=== PATIENT | female | born 1950 | race Caucasian/White ===

== ENCOUNTER 2020-04-05 10:02 | Outpatient (REF) | payer MEDICARE, SELFPAY ==
[2020-04-05 12:06] LABS: Thyroid Stimulating Hormone 2.02 mIU/mL (0.32-4.0)
== END 2020-04-05 10:03 | disposition home or self-care (01) ==
LOC: HO.HMGCLDS 10:02
PROVIDERS: PCP Student in an Organized Health Care Education/Training Program; Visit Provider Internal Medicine
DX: E03.9 Hypothyroidism, unspecified (principal)
CPT/HCPCS: 84443

== ENCOUNTER 2020-06-26 07:01 | Outpatient (REF) | payer MEDICARE, SELFPAY | END 2020-06-26 07:02 | disposition home or self-care (01) | LOC: HO.LAB 07:01 | PROVIDERS: Visit Provider Internal Medicine | DX: Z20.828 Contact with and (suspected) exposure to other viral communicable diseases (principal) | CPT/HCPCS: C9803; U0003 ==

== ENCOUNTER 2020-07-12 12:31 | Outpatient (REF) | payer MEDICARE, SELFPAY ==
[2020-07-12 14:19] LABS: Estimated Average Glucose 114 mg/dL; Hemoglobin A1c % 5.6 %
[2020-07-12 14:48] LABS: Alanine Aminotransferase 7 U/L (0-31); Albumin Level 4.3 g/dL (3.5-5.0); Alkaline Phosphatase 150 U/L (39-117); Anion Gap 17 (12-20); Aspartate Amino Transferase 10 U/L (5-31); Bilirubin Direct 0.3 mg/dL (0.0-0.5); Bilirubin Total 0.7 mg/dL (0.0-1.0); Blood Urea Nitrogen 22 mg/dL (9-16); Calcium 9.2 mg/dL (8.4-10.2); Carbon Dioxide 29 mmol/L (22-29); Chloride 100 mmol/L (96-108); Cholesterol 164 mg/dL; Estimated Glomerular Filt Rate 54; Glucose Fasting 157 mg/dL (60-99); HDL Cholesterol 43 mg/dL; LDL Cholesterol Calculated 98 mg/dl; Potassium 4.2 mmol/l (3.3-5.1); Sodium 142 mmol/L (135-145); Total Protein 7.9 g/dL (6.5-8.0); Triglycerides 118 mg/dL
[2020-07-12 14:55] LABS: Thyroid Stimulating Hormone 2.13 uIU/mL (0.32-4.0)
== END 2020-07-12 12:32 | disposition home or self-care (01) ==
LOC: HO.HMGCLDS 12:31
PROVIDERS: PCP Student in an Organized Health Care Education/Training Program; Visit Provider Student in an Organized Health Care Education/Training Program
DX: I10 Essential (primary) hypertension (principal); E03.9 Hypothyroidism, unspecified
CPT/HCPCS: 36415; 80048; 80061; 80076; 83036; 84443

== ENCOUNTER → 2020-10-23 06:26 | Day surgery (SDC) | payer MEDICARE, SELFPAY ==
[2020-10-18 12:44] VITALS: BMI 40.4
[2020-10-23 06:50] VITALS: BP 123/57; PULSE 92; RESP 18; TEMP 36.3; O2SAT 94
[2020-10-23 07:12] LABS: Glucose, Whole Blood 179 mg/dL (60-115)
--- NOTE | 2020-10-23 07:16 | P.CONAN_ITS ---
HPI - Anesthesia Eval Consult details Narrative: 70 yo female patient here for EGD, colonoscopy. Colonoscopy postponed from 02/2020 secondary to new diagnosis of atrial fibrillation on day of procedure. FORMERLY [facility], [facility] Past Medical History Medical History Arthritis Elevated cholesterol GERD (gastroesophageal reflux disease) History of diverticulosis History of gastric cancer History of neuropathy History of pneumonia HTN (hypertension) Hypothyroid Migraine headache Murmur New onset a-fib Non-insulin dependent diabetes mellitus Pernicious anemia Smoker Vitamin B 12 deficiency Surgical History Surgical History History of bunionectomy of both great toes History of esophagogastroduodenoscopy (EGD) History of nasal surgery Hx of colonoscopy Social History Social History Are you a primary care companion to a significant other at home: No Do you presently have visiting nurse or other home services: No Smoking Status: Current every day smoker Cigarettes Per Day: 0.75 Years Smoked: 40 Use of substances other than those prescribed or required for medical reasons: No Have you been hit, kicked, punched, or otherwise hurt by someone within the past year? If so, by whom?: No Advance Directives: Yes Advance Directives Information Provided: Yes Advance Directives on File: No Recently lost weight without trying: No Meds Allergies Allergy/AdvReac Type Severity Reaction Status Date / Time No Known Allergies Allergy Verified 10/23/20 06:49 Active Medications: Current Medications Generic Name Dose Route Start Last Admin Trade Name Freq PRN Reason Stop Dose Admin Sodium Biphosphate/Sodium Phosphate 133 ml 10/23/20 06:30 Sodium Phosphate,[place]-Dibasic 133 Ml Enema NC ONCE PRN Poor Colonoscopy Prep Results Home Medications Medication Instructions Recorded Confirmed Last Taken Type albuterol sulfate 2 puff INHALATION QID 10/18/20 10/18/20 Unknown History apixaban [Eliquis] 1 tab PO BID 10/18/20 10/18/20 10/19/20 History atorvastatin 1 tab PO BEDTIME 10/18/20 10/18/20 Unknown History cholecalciferol (vitamin D3) 1 cap PO DAILY 10/18/20 10/18/20 Unknown History diltiazem HCl 1 cap PO DAILY 10/18/20 10/18/20 10/23/20 05:45 History glipizide mg PO 10/18/20 Unknown History levothyroxine 1 tab PO DAILY 10/18/20 10/18/20 Unknown History lisinopril-hydrochlorothiazide 1 tab PO DAILY 10/18/20 10/18/20 10/23/20 05:45 History loratadine 1 tab PO DAILY 10/18/20 10/18/20 Unknown History metformin 1 tab PO BID 10/18/20 10/18/20 Unknown History omeprazole 1 cap PO DAILY 10/18/20 10/18/20 Unknown History Exam Exam Date and Time: October 23, 2020 0716 Height,Weight and Vital Signs: Height 5 ft 2 in Weight 100.244 kg Last Vital Signs Temp 97.4 F 10/23/20 06:50 Pulse 92 10/23/20 06:50 Resp 18 10/23/20 06:50 BP 123/57 L 10/23/20 06:50 Pulse Ox 94 10/23/20 06:50 Pertinent Lab Results Pertinent Lab Results: Laboratory Tests 10/23/20 07:04 POC Glucose 179 H Narrative Narrative: Procedure cancelled in 02/2020 secondary to new onset afib. Has been followed by [facility] cardiology. Cardioversion had been discussed but patient elected to try rate control as she has been asymptomatic -though now admits to a little flutter here and there . No dizziness,faintness, h/o CHF. At last cardiology visit in 07/2020 patient noted to be tachycardic. Had Holter monitor following which her diltiazem was increase from 180 to 360mg per day. Today, her HR is between 130s to up to 160s with BP 90-100/38-41. Patient asymptomatic. Discussed with washer off at [facility] and Dr Mclaughlin here. Agree that procedure should be postponed. Dr Mclaughlin suggested admitting patient for further management which I discussed with patient including cardioversion sooner rather than later but patient elects to go home and arrange this with her washer off at [facility]. Bp now 120/50. HR 110s to 130s. Patient stable. OK to discharge per patient's wishes. Airway Mallampati Class: II TM Dist: >3cm Neck ROM: Full Denture: Upper and Lower Loose/Missing/Broken Teeth: Yes (Just 1 tooth bottom) Heart: Irregular + murmur Lungs: CTAB Assessment and Plan Anesthetic Plan Anesthetic Plan: Other
--- NOTE | 2020-10-23 09:06 | PC.NURSE ---
pt evaluated by anesthesia due to abnormal rhythm. hx afib. eliquis held since thrusday. rate uncontrolled and anesthesia spoke with getter welder. procedure cancelled due to uncontrolled rate.
== END ==
PROVIDERS: PCP Student in an Organized Health Care Education/Training Program; Visit Provider Internal Medicine
DX: Z12.11 Encounter for screening for malignant neoplasm of colon (principal); Z53.09 Procedure and treatment not carried out because of other contraindication; I48.91 Unspecified atrial fibrillation; Z79.01 Long term (current) use of anticoagulants; E11.9 Type 2 diabetes mellitus without complications; Z79.84 Long term (current) use of oral hypoglycemic drugs
CPT/HCPCS: 82947

== ENCOUNTER 2020-10-31 11:12 | Outpatient (REF) | payer MEDICARE, SELFPAY ==
[2020-10-31 14:43] LABS: Estimated Average Glucose 108 mg/dL; Hemoglobin A1c % 5.4 %
[2020-10-31 14:46] LABS: Thyroid Stimulating Hormone 1.96 uIU/mL (0.32-4.0); Vitamin D 25-OH Total 56.9 ng/mL (>30)
[2020-10-31 16:07] LABS: Alanine Aminotransferase < 6 U/L (0-31); Albumin Level 4.1 g/dL (3.5-5.0); Alkaline Phosphatase 132 U/L (39-117); Anion Gap 19 (12-20); Aspartate Amino Transferase 10 U/L (5-31); Bilirubin Direct 0.2 mg/dL (0.0-0.5); Bilirubin Total 0.6 mg/dL (0.0-1.0); Blood Urea Nitrogen 25 mg/dL (9-16); Carbon Dioxide 28 mmol/L (22-29); Chloride 101 mmol/L (96-108); Cholesterol 152 mg/dL; Estimated Glomerular Filt Rate 43; Glucose Random 50 mg/dL (60-115); HDL Cholesterol 39 mg/dL; LDL Cholesterol Calculated 83 mg/dl; Potassium 3.8 mmol/L (3.3-5.1); Sodium 144 mmol/L (135-145); Total Protein 7.5 g/dL (6.5-8.0); Triglycerides 152 mg/dL
== END 2020-10-31 11:13 | disposition home or self-care (01) ==
LOC: HO.HMGCLDS 11:12
PROVIDERS: PCP Student in an Organized Health Care Education/Training Program; Visit Provider Student in an Organized Health Care Education/Training Program
DX: E03.9 Hypothyroidism, unspecified (principal); E11.9 Type 2 diabetes mellitus without complications; I10 Essential (primary) hypertension; I48.91 Unspecified atrial fibrillation
CPT/HCPCS: 36415; 80048; 80061; 80076; 82306; 83036; 84443

== ENCOUNTER 2021-01-10 06:26 | Day surgery (SDC) | payer MEDICARE, SELFPAY ==
[2021-01-05 11:41] VITALS: BMI 38.0
--- NOTE | 2021-01-09 12:32 | P.CONAN_ITS ---
Documented by User: Lani Loulou 01/09/21 12:38 HPI - Anesthesia Eval Consult details Narrative: 70yo F for Upper Endoscopy and Colonoscopy Eliquis for afib Previously cx'd 09/2020 d/t new afib with HR to 160's. Outpt cardioversion by [facility] Cardiology. Last seen by cardiol 12/19/20: Afib in 80's. OK for colonoscopy with dil and metoprolol to be taken [facility] Past Medical History Medical History Arthritis COVID-19 vaccine administered Elevated cholesterol GERD (gastroesophageal reflux disease) History of cardioversion History of diverticulosis History of gastric cancer History of neuropathy History of pneumonia HTN (hypertension) Hypothyroid Migraine headache Murmur New onset a-fib Non-insulin dependent diabetes mellitus Pernicious anemia Smoker Vitamin B 12 deficiency Surgical History Surgical History History of bunionectomy of both great toes History of esophagogastroduodenoscopy (EGD) History of nasal surgery Hx of colonoscopy Social History Social History Are you a primary care process manager to a significant other at home: No Do you presently have visiting nurse or other home services: No Patient Tobacco Use Status: Current everyday Tobacco user Tobacco use type: Cigarette Cigarettes Per Day: 15 Years Smoked: 40 Use of substances other than those prescribed or required for medical reasons: No Are you DNR?: No Advance Directives Information Provided: No Recently lost weight without trying: No Eating poorly because of decreased appetite: No Nutrition Risks: No Nutritional Risk Meds Allergies Allergy/AdvReac Type Severity Reaction Status Date / Time No Known Allergies Allergy Verified 01/03/21 14:36 Home Medications Medication Instructions Recorded Confirmed Last Taken Type albuterol sulfate 2 puff INHALATION QID 10/18/20 01/05/21 Unknown History apixaban [Eliquis] 1 tab PO BID 10/18/20 01/05/21 01/07/21 21:00 History atorvastatin 1 tab PO BEDTIME 10/18/20 01/05/21 Unknown History cholecalciferol (vitamin D3) 1 cap PO DAILY 10/18/20 01/05/21 Unknown History diltiazem HCl 1 cap PO DAILY 10/18/20 01/05/21 01/10/21 05:30 History glipizide 5 mg PO BID 10/18/20 01/05/21 Unknown History levothyroxine 1 tab PO DAILY 10/18/20 01/05/21 01/10/21 05:30 History lisinopril-hydrochlorothiazide 1 tab PO DAILY 10/18/20 01/05/21 10/23/20 05:45 History loratadine 1 tab PO DAILY 10/18/20 01/05/21 Unknown History metformin 1 tab PO BID 10/18/20 01/05/21 Unknown History omeprazole 1 cap PO DAILY 10/18/20 01/05/21 Unknown History metoprolol tartrate 1 tab PO BID 01/05/21 01/05/21 01/10/21 05:30 History Exam Exam Date and Time: January 09, 2021 1232 Height,Weight and Vital Signs: Height 5 ft 2 in Weight 94.3 kg Narrative Narrative: EKG 11/2020 Afib with PV or aberrantly conducted complexes RBBB 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) Assessment and Plan Assessment Anesthesia Assessment: Chart Reviewed Documented by User: Hugo Almanza 01/10/21 07:21 [facility] Past Medical History Medical History Arthritis COVID-19 vaccine administered Elevated cholesterol GERD (gastroesophageal reflux disease) History of cardioversion History of diverticulosis History of gastric cancer History of neuropathy History of pneumonia HTN (hypertension) Hypothyroid Migraine headache Murmur New onset a-fib Non-insulin dependent diabetes mellitus Pernicious anemia Smoker Vitamin B 12 deficiency Surgical History Surgical History History of bunionectomy of both great toes History of esophagogastroduodenoscopy (EGD) History of nasal surgery Hx of colonoscopy Social History Social History Are you a primary care process manager to a significant other at home: No Do you presently have visiting nurse or other home services: No Patient Tobacco Use Status: Current everyday Tobacco user Tobacco use type: Cigarette Cigarettes Per Day: 15 Years Smoked: 40 Use of substances other than those prescribed or required for medical reasons: No Are you DNR?: No Advance Directives Information Provided: No Recently lost weight without trying: No Eating poorly because of decreased appetite: No Nutrition Risks: No Nutritional Risk Meds Allergies Allergy/AdvReac Type Severity Reaction Status Date / Time No Known Allergies Allergy Verified 01/03/21 14:36 Home Medications Medication Instructions Recorded Confirmed Last Taken Type albuterol sulfate 2 puff INHALATION QID 10/18/20 01/05/21 Unknown History apixaban [Eliquis] 1 tab PO BID 10/18/20 01/05/21 01/07/21 21:00 History atorvastatin 1 tab PO BEDTIME 10/18/20 01/05/21 Unknown History cholecalciferol (vitamin D3) 1 cap PO DAILY 10/18/20 01/05/21 Unknown History diltiazem HCl 1 cap PO DAILY 10/18/20 01/05/21 01/10/21 05:30 History glipizide 5 mg PO BID 10/18/20 01/05/21 Unknown History levothyroxine 1 tab PO DAILY 10/18/20 01/05/21 01/10/21 05:30 History lisinopril-hydrochlorothiazide 1 tab PO DAILY 10/18/20 01/05/21 10/23/20 05:45 History loratadine 1 tab PO DAILY 10/18/20 01/05/21 Unknown History metformin 1 tab PO BID 10/18/20 01/05/21 Unknown History omeprazole 1 cap PO DAILY 10/18/20 01/05/21 Unknown History metoprolol tartrate 1 tab PO BID 01/05/21 01/05/21 01/10/21 05:30 History Exam Airway Mallampati Class: II TM Dist: >3cm Neck ROM: Full Denture: Upper Loose/Missing/Broken Teeth: Yes (only one tooth bottom) Heart: irreg irreg s1s2 Lungs: cta b/l Assessment and Plan Assessment Anesthesia Assessment: Anesthesia Plan Discussed, PAT Visit and Chart Reviewed Final Anesthetic Review NPO: Yes ASA Class: III Final Preanesthetic Review: No Changes in Pt Med Stat, Meds/Allgs Chart Reviewed, Consent Obtained/Reviewed and Anes Risks/Benef Reviewed Patient Risk: Intermediate Procedure Risk: Low Assessment/Block/Sedation in SS: Assess/Block/Sedation-SS Anesthetic Plan Anesthetic Plan: MAC: and Agree w/ Assess. and Plan Disposition: Standard PACU
[2021-01-10 06:56] LABS: Glucose, Whole Blood 138 mg/dL (60-115)
[2021-01-10 06:59] VITALS: BP 103/61; PULSE 97; RESP 18; TEMP 36.1; O2SAT 97
[2021-01-10] MEDS: Lactated Ringers 1,000 ML 100 ML IVCONT (07:11)
[2021-01-10 08:48] VITALS: BP 104/59; PULSE 62; RESP 14; TEMP 36.4; O2SAT 98
--- NOTE | 2021-01-10 08:52 | P.BOP_ITS ---
Brief Operative Note Date of Service: 01/10/21 Pre-op diagnosis: Gastric carcinoid, Screening Post-op diagnosis: other (Gastric polyps, Diverticulosis) Procedure: EGD with biopsies, Colonoscopy to the cecum Surgeon: Wlademar Leal Anesthesia: MAC Was an Certified Prosthetist/Orthotist used for this Procedure?: No Estimated blood loss (mL): 4.0 Pathology: other (A. Gastric polyps) Condition: stable Disposition: PACU
[2021-01-10 09:03] VITALS: BP 103/51; PULSE 87; RESP 17; TEMP 36.4; O2SAT 100
--- NOTE | 2021-01-10 10:31 | OP_ITS ---
SURGEON: Waldemar Leal MD INDICATIONS: The patient presents for evaluation of personal history of tubular adenoma of the colon, family history of colon cancer, colorectal cancer screening, and history of gastric carcinoid tumor. Full consent has been obtained from her for this, including risks of bleeding and perforation. PREOPERATIVE DIAGNOSIS: POSTOPERATIVE DIAGNOSIS: PROCEDURE PERFORMED: Esophagogastroduodenoscopy with biopsies, and colonoscopy to cecum. ESTIMATED BLOOD LOSS: COMPLICATIONS: ANESTHESIA: Monitored anesthesia care. ASSISTANTS: SPECIMENS: PREOPERATIVE DIAGNOSES: Personal history of tubular adenoma of the colon, family history of colon cancer, colorectal cancer screening, history of gastric carcinoid. POSTOPERATIVE DIAGNOSES: Personal history of tubular adenoma of the colon, family history of colon cancer, colorectal cancer screening, history of gastric carcinoid, gastric polyps, hiatal hernia, diverticulosis, and internal hemorrhoids. DESCRIPTION OF PROCEDURE: The patient was placed in the left lateral decubitus position. The Olympus video gastroscope was passed in the posterior oropharynx and upper esophagus under direct vision. The scope was passed slowly into the distal esophagus. The gastroesophageal junction appeared at 36 cm. There was no sign of any esophagitis nor mass. There was a small hiatal hernia. The scope was advanced to the pylorus and the duodenum was cannulated to the descending portion. The duodenum including the bulb appeared normal without mass or ulceration. Scope was withdrawn back in the stomach. The gastric antrum appeared normal. There was good peristalsis. Extending from the proximal stomach to the body of the stomach, were multiple less than 10 mm gastric polyps, some of which were erythematous. There were no ulcerations nor mass. These were seen both in the forward viewing and retroflexed positions. Multiple biopsies were obtained from some of the polyps. The scope was withdrawn back into the esophagus. The esophageal mucosa appeared normal. The scope was withdrawn from the patient. She tolerated the procedure well. She was turned around for the colonoscopy. The digital rectal exam revealed no abnormalities. The Olympus video pediatric colonoscope was entered into the rectum and advanced to the cecum with the assistance of abdominal wall pressure. Advancement to the cecum was difficult. However, once in the cecum, I did identify cecal pouch with appendiceal orifice and a normal-appearing ileocecal valve. I did visualize some nonbleeding less than 10 mm angiodysplasias in the cecum. The remainder of the cecum appeared normal. The scope was slowly withdrawn assessing all mucosal surfaces carefully. There was some liquid stool throughout the colon, which was suctioned and irrigated away as best as possible. I did not visualize any sign of polyps, colitis, nor angiodysplasia. There was a mild amount of sigmoid diverticulosis. In the rectum, scope was retroflexed visualizing internal hemorrhoids, but no other pathology. The rectal mucosa appeared normal. The scope was straightened out and withdrawn from the patient. She tolerated both procedures well and was returned to the recovery area in stable condition. IMPRESSION: 1. Gastric polyps, status post biopsy. 2. Hiatal hernia. 3. Nonbleeding cecal angiodysplasias. 4. Diverticulosis. 5. Internal hemorrhoids. PLAN: The results of the biopsies will be checked. I would recommend a repeat upper endoscopy and colonoscopy in 3 years for further screening and surveillance. She was advised to resume her Eliquis by tomorrow. She will continue her daily omeprazole. She will see me otherwise on a p.r.n. basis. MD TAMMIE Torres/LIZY / [id number]
== END 2021-01-10 09:26 | disposition home or self-care (01) ==
PROVIDERS: PCP Student in an Organized Health Care Education/Training Program; Visit Provider Internal Medicine
PROC: (CPT 43239; principal; 2021-01-10 07:30)
DX: Z12.11 Encounter for screening for malignant neoplasm of colon (principal); Z86.010 Personal history of colon polyps; Z80.0 Family history of malignant neoplasm of digestive organs; K57.30 Diverticulosis of large intestine without perforation or abscess without bleeding; K64.8 Other hemorrhoids; K55.20 Angiodysplasia of colon without hemorrhage; K31.7 Polyp of stomach and duodenum; Z85.020 Personal history of malignant carcinoid tumor of stomach; K44.9 Diaphragmatic hernia without obstruction or gangrene; K21.9 Gastro-esophageal reflux disease without esophagitis; D51.0 Vitamin B12 deficiency anemia due to intrinsic factor deficiency; I10 Essential (primary) hypertension; I48.91 Unspecified atrial fibrillation; Z79.01 Long term (current) use of anticoagulants; Z79.84 Long term (current) use of oral hypoglycemic drugs; Z79.899 Other long term (current) drug therapy; E11.9 Type 2 diabetes mellitus without complications; F17.210 Nicotine dependence, cigarettes, uncomplicated
CPT/HCPCS: 43239; G0105; 82947; 88305; 88342

== ENCOUNTER 2021-03-12 09:12 | Outpatient (REF) | payer MEDICARE, SELFPAY ==
--- NOTE | ~2021-03-12 | MM_ITS ---
EXAMINATION: MM SCREENING DIGITAL BREAST TOMOSYNTHESIS, BILATERAL CLINICAL INFORMATION: Screening. Asymptomatic. The lifetime risk of breast cancer based on the Tyrer-Cuzick Model is 4%. COMPARISON: Mammography: 03/10/2020, 03/08/2019, 02/13/2018 TECHNIQUE: Digital breast tomosynthesis is performed in both the craniocaudal and mediolateral oblique views along with computer-aided detection (CAD). Synthesized 2D images are generated from the tomosynthesis. Additional right MLO view is provided. FINDINGS: There are scattered areas of fibroglandular density (ACR BI-RADS breast composition Category b). Breast tissue composition borders on predominantly fatty. Background fibroglandular stromal densities are stable. There is no developing density. No abnormal calcifications. The axilla and skin contours are unremarkable. No significant changes prior studies. MM/MM tomosynthesis screening BI IMPRESSION: No mammographic evidence of malignancy. ASSESSMENT: BI-RADS 1: Negative RECOMMENDATION: Routine annual mammography screening. This patient's information was entered into a reminder system with a target due date for their next mammogram.
== END 2021-03-12 09:13 | disposition home or self-care (01) ==
LOC: HO.MAMMO 09:12
PROVIDERS: PCP Student in an Organized Health Care Education/Training Program; Visit Provider Student in an Organized Health Care Education/Training Program
DX: Z12.31 Encounter for screening mammogram for malignant neoplasm of breast (principal)
CPT/HCPCS: 77063; 77067

== ENCOUNTER 2022-02-04 08:37 | Outpatient (REF) | payer MEDICARE, SELFPAY ==
[2022-02-04 11:35] LABS: Appearance Urine HAZY; Color Urine YELLOW; Glucose Urine UA NEG (NEG); Leukocyte Esterase Urine 3+ (NEG); Nitrite Urine NEG (NEG); Specific Gravity - Urine 1.015 (1.005-1.025); Urine Blood TRACE (NEG); Urine Ketones NEG (NEG); Urine Protein TRACE MG/DL (NEG-TRACE)
[2022-02-04 11:56] LABS: Anion Gap 18 (12-20); Blood Urea Nitrogen 27 mg/dL (9-16); Calcium 8.8 mg/dL (8.4-10.2); Carbon Dioxide 28 mmol/L (22-29); Chloride 101 mmol/L (96-108); Estimated Glomerular Filt Rate 42; Glucose Random 116 mg/dL (60-115); Sodium 143 mmol/L (135-145)
[2022-02-04 12:38] LABS: Creatinine Urine 86.57 mg/dL; Protein/Creatinine Ratio, Ur 0.29 (<0.2); Total Protein Urine Random 25 mg/dL (<12)
[2022-02-04 12:54] LABS: Bacteria Urine 2+ /LPF
[2022-02-04 12:55] LABS: Squamous Epithelial Cell Urine 1+ /LPF
[2022-02-04 12:56] LABS: RBC Urine 0-2 /HPF (0)
== END 2022-02-04 08:38 | disposition home or self-care (01) ==
LOC: HO.HMGCLDS 08:37
PROVIDERS: PCP Student in an Organized Health Care Education/Training Program; Visit Provider Internal Medicine Hypertension Specialist
DX: E11.22 Type 2 diabetes mellitus with diabetic chronic kidney disease (principal); N18.31 Chronic kidney disease, stage 3a
CPT/HCPCS: 36415; 80048; 81001; 84156

== ENCOUNTER 2022-03-18 09:38 | Outpatient (REF) | payer MEDICARE, SELFPAY ==
--- NOTE | ~2022-03-18 | MM_ITS ---
EXAMINATION: MM SCREENING DIGITAL BREAST TOMOSYNTHESIS, BILATERAL CLINICAL INFORMATION: Screening. Asymptomatic. The lifetime risk of breast cancer based on the Tyrer-Cuzick Model is 4%. COMPARISON: Mammography: 03/12/2021, 03/10/2020, 03/08/2019, 02/13/2018, 01/22/2017 TECHNIQUE: Digital breast tomosynthesis is performed in both the craniocaudal and mediolateral oblique views along with computer-aided detection (CAD). Synthesized 2D images are generated from the tomosynthesis. FINDINGS: There are scattered areas of fibroglandular density (ACR BI-RADS breast composition Category b). There are no significant masses, abnormal calcifications, or other abnormalities. Parenchymal pattern is similar to prior studies. There is no developing density or architectural abnormality. The axilla and skin contours are unremarkable. No significant changes. MM/MM tomosynthesis screening BI IMPRESSION: No mammographic evidence of malignancy. ASSESSMENT: BI-RADS 1: Negative RECOMMENDATION: Routine annual mammography screening. This patient's information was entered into a reminder system with a target due date for their next mammogram.
== END 2022-03-18 09:39 | disposition home or self-care (01) ==
LOC: HO.MAMMO 09:38
PROVIDERS: PCP Student in an Organized Health Care Education/Training Program; Visit Provider Student in an Organized Health Care Education/Training Program
DX: Z12.31 Encounter for screening mammogram for malignant neoplasm of breast (principal)
CPT/HCPCS: 77063; 77067

== ENCOUNTER 2022-05-21 07:24 | Outpatient (REF) | payer MEDICARE, SELFPAY ==
[2022-05-21 11:45] LABS: MANUAL DIFF FLAG NO
[2022-05-21 11:49] LABS: Basophils Absolute Auto 0.1 X10*3/uL (0.0-0.2); Eosinophils Absolute Auto 0.2 X10*3/uL (0.0-0.4); Hematocrit 42.9 % (37.0-47.0); Hemoglobin 12.9 g/dl (12.0-16.0); Imm Gran Abs Auto 0.05 X10*3/uL (0.00-0.03); Imm Gran Pct Auto 0.5 % (0.0-0.4); Lymphocytes Absolute Auto 1.7 X10*3/uL (1.2-4.9); Mean Corpuscular HGB Conc 30.1 g/dl (31.0-35.0); Mean Corpuscular Hemoglobin 25.5 pg (27.0-33.0); Mean Corpuscular Volume 84.8 fL (80.0-98.0); Monocytes Absolute Auto 0.5 X10*3/uL (0.1-1.2); Monocytes Percent Auto 4.3 % (2-11); Neutrophils Absolute Auto 8.3 x10*3/uL (2.0-8.3); Neutrophils Percent Auto 76.2 % (45-73); Platelet Count 275 X10*3/uL (160-400); Red Blood Count 5.06 X10*6/uL (4.20-5.50); Red Cell Distribution Width 14.4 % (11.0-16.0); White Blood Count 10.9 X10*3/uL (4.8-10.8)
[2022-05-21 12:14] LABS: Anion Gap 19 (12-20); Blood Urea Nitrogen 25 mg/dL (9-16); Calcium 9.1 mg/dL (8.4-10.2); Carbon Dioxide 28 mmol/L (22-29); Chloride 99 mmol/L (96-108); Estimated Glomerular Filt Rate 50; Glucose Random 95 mg/dL (60-115); Potassium 3.8 mmol/L (3.3-5.1); Sodium 142 mmol/L (135-145)
== END 2022-05-21 07:25 | disposition home or self-care (01) ==
LOC: HO.HMGCLDS 07:24
PROVIDERS: PCP Student in an Organized Health Care Education/Training Program; Visit Provider Internal Medicine Hypertension Specialist
DX: N18.31 Chronic kidney disease, stage 3a (principal)
CPT/HCPCS: 36415; 80048; 85025

== ENCOUNTER 2022-11-21 07:25 | Outpatient (REF) | payer MEDICARE, SELFPAY ==
[2022-11-21 11:32] LABS: Hematocrit 40.2 % (37.0-47.0); Hemoglobin 12.1 g/dl (12.0-16.0); Mean Corpuscular HGB Conc 30.1 g/dl (31.0-35.0); Mean Corpuscular Hemoglobin 25.5 pg (27.0-33.0); Mean Corpuscular Volume 84.6 fL (80.0-98.0); Platelet Count 264 X10*3/uL (160-400); Red Blood Count 4.75 X10*6/uL (4.20-5.50); Red Cell Distribution Width 14.4 % (11.0-16.0); White Blood Count 9.8 X10*3/uL (4.8-10.8)
[2022-11-21 11:46] LABS: Anion Gap 19 (12-20); Blood Urea Nitrogen 30 mg/dL (9-16); Calcium 8.7 mg/dL (8.4-10.2); Carbon Dioxide 26 mmol/L (22-29); Chloride 102 mmol/L (96-108); Estimated Glomerular Filt Rate 42; Glucose Random 81 mg/dL (60-115); Potassium 3.6 mmol/L (3.3-5.1); Sodium 143 mmol/L (135-145)
== END 2022-11-21 07:26 | disposition home or self-care (01) ==
LOC: HO.HMGCLDS 07:25
PROVIDERS: PCP Student in an Organized Health Care Education/Training Program; Visit Provider Internal Medicine Hypertension Specialist
DX: N18.31 Chronic kidney disease, stage 3a (principal)
CPT/HCPCS: 36415; 80048; 85027

== ENCOUNTER 2023-03-24 08:28 | Outpatient (REF) | payer MEDICARE, SELFPAY ==
--- NOTE | ~2023-03-24 | MM_ITS ---
EXAMINATION: MM SCREENING DIGITAL BREAST TOMOSYNTHESIS, BILATERAL CLINICAL INFORMATION: Screening. Asymptomatic. COMPARISON: Mammography: 03/18/2022, 03/12/2021, 03/10/2020, 03/08/2019, 02/13/2018 TECHNIQUE: Digital breast tomosynthesis is performed in both the craniocaudal and mediolateral oblique views along with computer-aided detection (CAD). Synthesized 2D images are generated from the tomosynthesis. In addition, a full-field added right MLO view was obtained. FINDINGS: There are scattered areas of fibroglandular density (ACR BI-RADS breast composition Category b). There are no suspicious masses, suspicious grouped calcifications, or areas of architectural distortion in either breast. The parenchymal pattern is stable from prior exams. Stable mild duct ectasia in the retroareolar regions. No skin or axillary abnormalities. MM/MM tomosynthesis screening BI IMPRESSION: No mammographic evidence of malignancy. Stable benign findings. ASSESSMENT: BI-RADS BI-RADS 2 - Benign Findings RECOMMENDATION: Routine annual mammography screening. 1 year F/U This examination should not preclude the clinical evaluation of a suspicious palpable abnormality. This patient's information was entered into a reminder system with a target due date for their next mammogram.
== END 2023-03-24 08:29 | disposition home or self-care (01) ==
LOC: HO.MAMMO 08:28
PROVIDERS: PCP Student in an Organized Health Care Education/Training Program; Visit Provider Student in an Organized Health Care Education/Training Program
DX: Z12.31 Encounter for screening mammogram for malignant neoplasm of breast (principal)
CPT/HCPCS: 77063; 77067

== ENCOUNTER → 2023-03-24 08:30 | Outpatient (BNV) | payer MEDICARE, SELFPAY | PROVIDERS: PCP Student in an Organized Health Care Education/Training Program; Visit Provider Radiology Diagnostic Radiology | DX: Z12.31 Encounter for screening mammogram for malignant neoplasm of breast (principal) | CPT/HCPCS: 77063; 77067 ==

== ENCOUNTER 2023-04-01 09:52 | Outpatient (REF) | payer MEDICARE, SELFPAY ==
[2023-04-01 14:59] LABS: Alanine Aminotransferase 5 U/L (0-31); Alkaline Phosphatase 143 U/L (39-117); Anion Gap 18 (12-20); Aspartate Amino Transferase 11 U/L (5-31); Bilirubin Direct 0.2 mg/dL (0.0-0.5); Bilirubin Total 0.4 mg/dL (0.0-1.0); Blood Urea Nitrogen 27 mg/dL (9-16); Calcium 9.9 mg/dL (8.4-10.2); Carbon Dioxide 26 mmol/L (22-29); Chloride 100 mmol/L (96-108); Cholesterol 181 mg/dL (<200); Estimated Glomerular Filt Rate 42; Glucose Fasting 121 mg/dL (60-99); HDL Cholesterol 42 mg/dL (>40); LDL Cholesterol Calculated 107 mg/dL (<100); Potassium 3.8 mmol/L (3.3-5.1); Sodium 140 mmol/L (135-145); Total Protein 8.1 g/dL (6.5-8.0); Triglycerides 162 mg/dL (<150)
[2023-04-01 15:14] LABS: Thyroid Stimulating Hormone 2.03 uIU/mL (0.32-4.0)
[2023-04-01 15:49] LABS: Creatinine Urine 192.12 mg/dL; Microalbum/Creatinine Ratio Ur 281.5 ug/mg cr (<30)
== END 2023-04-01 09:53 | disposition home or self-care (01) ==
LOC: HO.CHCLDS 09:52
PROVIDERS: Visit Provider Student in an Organized Health Care Education/Training Program
DX: E11.9 Type 2 diabetes mellitus without complications (principal); E03.9 Hypothyroidism, unspecified
CPT/HCPCS: 36415; 80048; 80061; 80076; 82043; 82570; 84443

== ENCOUNTER 2023-05-28 08:09 | Outpatient (REF) | payer MEDICARE, SELFPAY ==
[2023-05-28 12:09] LABS: Anion Gap 13 (12-20); Blood Urea Nitrogen 23 mg/dL (9-16); Calcium 9.1 mg/dL (8.4-10.2); Carbon Dioxide 29 mmol/L (22-29); Chloride 102 mmol/L (96-108); Estimated Glomerular Filt Rate 44; Glucose Random 103 mg/dL (60-115); Potassium 4.1 mmol/L (3.3-5.1); Sodium 140 mmol/L (135-145)
[2023-05-28 12:38] LABS: Creatinine Urine 62.97 mg/dL; Protein/Creatinine Ratio, Ur 0.75 (<0.2); Total Protein Urine Random 47 mg/dL (<12)
== END 2023-05-28 08:10 | disposition home or self-care (01) ==
LOC: HO.HMGCLDS 08:09
PROVIDERS: PCP Student in an Organized Health Care Education/Training Program; Visit Provider Internal Medicine Hypertension Specialist
DX: N18.31 Chronic kidney disease, stage 3a (principal); N28.1 Cyst of kidney, acquired
CPT/HCPCS: 36415; 80048; 82570; 84156

== ENCOUNTER 2023-06-02 09:00 | Outpatient (REF) | payer MEDICARE, SELFPAY ==
--- NOTE | ~2023-06-02 | US_ITS ---
EXAMINATION: US RETROPERITONEAL LIMITED (RENAL ONLY) CLINICAL INFORMATION: Chronic kidney disease, unspecified. COMPARISON: Ultrasound retroperitoneal limited 12/21/2021. Ultrasound abdomen complete 05/08/2016. TECHNIQUE: Real-time imaging of the kidneys. FINDINGS: RIGHT KIDNEY: 11.5 x 5.4 x 6.7 cm (SAG x AP x TRV). The kidney is normal in size and contour. No renal calculi or hydronephrosis. There is renal cortical thinning and increased renal cortical echotexture. At the upper pole, a 1.0 cm benign, simple cyst is seen. At the lower pole, a 6 mm benign, simple cyst is seen. These require no imaging follow-up. LEFT KIDNEY: 9.0 x 4.5 x 6.5 cm (SAG x AP x TRV). The kidney is normal in size and contour. No renal calculi or hydronephrosis. There is renal cortical thinning and increased renal cortical echotexture. At the lower pole, a 1.0 cm benign, simple cyst is seen, which requires no imaging follow-up. US/US renal BI IMPRESSION: 1. There is increased renal cortical echotexture and renal cortical thinning, which can be associated with medical renal disease. 2. Simple bilateral renal cysts are seen.
== END 2023-06-02 09:01 | disposition home or self-care (01) ==
LOC: HO.HMGCX 09:00
PROVIDERS: PCP Student in an Organized Health Care Education/Training Program; Visit Provider Internal Medicine Hypertension Specialist
DX: N18.9 Chronic kidney disease, unspecified (principal)
CPT/HCPCS: 76775

== ENCOUNTER 2023-06-05 11:38 | Outpatient (AMB) | payer MEDICARE, SELFPAY ==
--- NOTE | 2023-06-05 11:30 | HO.NEPHOV_ITS ---
HPI HPI Comments History of Present Illness Details 72-year-old woman with a history of obes ity longstanding diabetes mellitus and smoking this year for follow-up regarding CKD. Her baseline serum creatinine around 1.2-1.3 mg/dL. EGFR is was 46 mL/minute. Today she has no specific complaints. She continues to smoke cigarettes. She has been smoking since age 12. She has a history of atrial fibrillation status post cardioversion she follows with Dr. Hernandez at [facility] Medical History (Updated 06/05/23 @ 11:47 by Randy Mooney MD) COVID-19 vaccine administered History of cardioversion Vitamin B 12 deficiency Smoker Pernicious anemia History of diverticulosis Hypothyroid Arthritis Non-insulin dependent diabetes mellitus GERD (gastroesophageal reflux disease) History of neuropathy Migraine headache History of gastric cancer History of pneumonia New onset a-fib Elevated cholesterol Murmur HTN (hypertension) Surgical History History of nasal surgery History of esophagogastroduodenoscopy (EGD) History of bunionectomy of both great toes Hx of colonoscopy Social History (Updated 06/05/23 @ 11:40 by Daria Sweeney MA) Are you a primary hospice care sales consultant to a significant other at home: No Do you presently have visiting nurse or other home services: No Alcohol intake: never Patient Tobacco Use Status: Current everyday Tobacco user Tobacco use type: Cigarette Cigarettes Per Day: 15 Years Smoked: 40 Vital Signs 06/05/23 11:31 Height 5 ft 2 in Weight 202 lb 4 oz BMI 37.0 BP 120/62 Blood Pressure Location Rt brachial Position Sitting Pulse 81 Pulse Source Pulse Oximeter Pulse Oximetry (%) 97 Oxygen Delivery Method Room Air Physical Exam Vital Signs: Last Vital Signs Pulse 81 06/05/23 11:31 BP 120/62 06/05/23 11:31 Pulse Ox 97 06/05/23 11:31 Oxygen Delivery Method Room Air 06/05/23 11:31 BMI result Body Mass Index 37.0 Const General: comfortable; No acute distress Orientation/consciousness: patient oriented x3 Eyes General: appearance normal, both eyes and all related structures Visual Sewell: normal visual sewell by confrontation Neck Neck: Yes supple and Yes no JVD Resp Effort & Inspection: normal respiratory effort and respiratory effort not d ecreased Auscultation: rhonchi Cardio Palpation: no palpable S3 and no palpable S4 Heart sounds: no rubs GI Inspection: Yes normal to inspection Palpation (GI): Soft to palpation Percussion: Yes normal to percussion Auscultation: normal bowel sounds General: Yes no CVA tenderness Back/Spine/Pelvis Back: no CVA tenderness Skin General skin exam: no petechiae and no purpura Neuro General: patient oriented x3 and no focal motor deficits Extrem General: No clubbing and No edema Assessment & Plan Assessment & Plan (1) CKD (chronic kidney disease): Code(s): N18.9 - Chronic kidney disease, unspecified (2) Proteinuria: Code(s): R80.9 - Proteinuria, unspecified (3) HTN (hypertension): Code(s): I10 - Essential (primary) hypertension Plan Elderly woman with CKD in setting of longstanding hypertension diabetes mellitus. She has nonnephrotic range proteinuria most likely due to underlying diabetic kidney disease. Renal function is stable at this time with a serum creatinine around 1.2-1.3 mg/dL. Goal is to slow the progression of renal disease. Continue to maximize RICKY inhibitor as tolerated for renal protection. She will benefit from an SGLT 2 inhibitor. We discussed weight loss and smoking cessation. She is planning to quit smoking from the new year's Hemoglobin stable around 12.1 grams/deciliter. Serum electrolytes are normal. Urine protein creatinine ratio 0.75. Continued RICKY-inhibitor for renal protection. Coding Level of Care Code Est Pt Level 4 (22767) Diagnoses CKD (chronic kidney disease) N18.9 Proteinuria R80.9 HTN (hypertension) I10 Results Reviewed Results Reviewed: Renal Sonogram : May 2023 RIGHT KIDNEY: 11.5 x 5.4 x 6.7 cm (SAG x AP x TRV). The kidney is normal in size and contour. No renal calculi or hydronephrosis. There is renal cortical thinning and increased renal cortical echotexture. At the upper pole, a 1.0 cm benign, simple cyst is seen. At the lower pole, a 6 mm benign, simple cyst is seen. These require no imaging follow-up. LEFT KIDNEY: 9.0 x 4.5 x 6.5 cm (SAG x AP x TRV). The kidney is normal in size and contour. No renal calculi or hydronephrosis. There is renal cortical thinning and increased renal cortical echotexture. At the lower pole, a 1.0 cm benign, simple cyst is seen, which requires no imaging follow-up. US/US renal BI IMPRESSION: 1. There is increased renal cortical echotexture and renal cortical thinning, which can be associated with medical renal disease. 2. Simple bilateral renal cysts are seen. Nephrology Results: Hgb 12.1 g/dl (12.0-16.0) 11/21/22 WBC 9.8 X10*3/uL (4.8-10.8) 11/21/22 Plt Count 264 X10*3/uL (160-400) 11/21/22 Sodium 140 mmol/L (135-145) 05/28/23 Potassium 4.1 mmol/L (3.3-5.1) 05/28/23 Chloride 102 mmol/L (96-108) 05/28/23 Carbon Dioxide 29 mmol/L (22-29) 05/28/23 BUN 23 mg/dL (9-16) H 05/28/23 Creatinine 1.21 mg/dL (0.5-1.4) 05/28/23 Calcium 9.1 mg/dL (8.4-10.2) 05/28/23 Urine Protein TRACE MG/DL (NEG-TRACE) 02/04/22 Urine Creatinine 62.97 mg/dL 05/28/23 Protein/Creatinin Ratio 0.75 (<0.2) H 05/28/23 Renal US 06/02/23
[2023-06-05 11:31] VITALS: BP 120/62; PULSE 81; O2SAT 97; BMI 37.0
== END 2023-06-05 11:49 | disposition home or self-care (01) ==
PROVIDERS: PCP Student in an Organized Health Care Education/Training Program; Visit Provider Internal Medicine Hypertension Specialist
DX: I12.9 Hypertensive chronic kidney disease with stage 1 through stage 4 chronic kidney disease, or unspecified chronic kidney disease (principal); N18.9 Chronic kidney disease, unspecified; R80.9 Proteinuria, unspecified
CPT/HCPCS: 99214

== ENCOUNTER → 2023-06-05 11:38 | Outpatient (BNVA) | payer MEDICARE, SELFPAY | PROVIDERS: PCP Student in an Organized Health Care Education/Training Program; Visit Provider Internal Medicine Hypertension Specialist | DX: I12.9 Hypertensive chronic kidney disease with stage 1 through stage 4 chronic kidney disease, or unspecified chronic kidney disease (principal); N18.9 Chronic kidney disease, unspecified; R80.9 Proteinuria, unspecified | CPT/HCPCS: 99212 ==

== ENCOUNTER 2023-09-18 10:49 | Outpatient (REF) | payer MEDICARE, SELFPAY ==
[2023-09-18 15:21] LABS: Estimated Average Glucose 134 mg/dL; Hemoglobin A1c % 6.3 % (<6.0)
[2023-09-18 15:42] LABS: Alanine Aminotransferase 7 U/L (0-31); Albumin Level 3.5 g/dL (3.5-5.0); Alkaline Phosphatase 108 U/L (39-117); Anion Gap 19 (12-20); Aspartate Amino Transferase 10 U/L (5-31); Bilirubin Direct 0.2 mg/dL (0.0-0.5); Bilirubin Total 0.4 mg/dL (0.0-1.0); Blood Urea Nitrogen 22 mg/dL (9-16); Calcium 8.8 mg/dL (8.4-10.2); Carbon Dioxide 26 mmol/L (22-29); Chloride 100 mmol/L (96-108); Cholesterol 110 mg/dL (<200); Estimated Glomerular Filt Rate 55; Glucose Random 169 mg/dL (60-115); HDL Cholesterol 39 mg/dL (>40); LDL Cholesterol Calculated 52 mg/dL (<100); Potassium 3.7 mmol/L (3.3-5.1); Sodium 141 mmol/L (135-145); Total Protein 7.3 g/dL (6.5-8.0); Triglycerides 96 mg/dL (<150)
[2023-09-18 15:46] LABS: Thyroid Stimulating Hormone 0.66 uIU/mL (0.32-4.0)
== END 2023-09-18 10:50 | disposition home or self-care (01) ==
LOC: HO.CHCLDS 10:49
PROVIDERS: Visit Provider Student in an Organized Health Care Education/Training Program
DX: E11.9 Type 2 diabetes mellitus without complications (principal); E03.9 Hypothyroidism, unspecified; I10 Essential (primary) hypertension; I48.0 Paroxysmal atrial fibrillation
CPT/HCPCS: 36415; 80048; 80061; 80076; 83036; 84443

== ENCOUNTER 2023-12-04 10:48 | Outpatient (AMB) | payer MEDICARE, SELFPAY ==
[2023-12-04 10:49] VITALS: BP 112/60; PULSE 98; O2SAT 99; BMI 33.7
--- NOTE | 2023-12-04 10:49 | HO.NEPHOV ---
Vital Signs 12/04/23 10:49 Height 5 ft 2 in Weight 184 lb BMI 33.7 BP 112/60 Blood Pressure Location Rt brachial Position Sitting Pulse 98 Pulse Source Pulse Oximeter Pulse Oximetry (%) 99 Oxygen Delivery Method Room Air Intake Visit Reasons: 6 month f/u CKD/ Conf Grain Elevator Operator Required: No Accompanied by: Self / Same As Patient Allergies No Known Allergies Allergy (Verified 12/04/23 10:51) Medication List - Last Reconciled 12/04/23 by Randy Mooney MD albuterol sulfate 90 mcg/actuation 2 puffs inhalation QID apixaban (Eliquis) 1 tab PO BID atorvastatin 1 tab PO BEDTIME cholecalciferol (vitamin D3) 1 cap PO DAILY diltiazem HCl CD 1 cap PO DAILY glipizide 5 mg PO BID levothyroxine 1 tab PO DAILY lisinopril-hydrochlorothiazide 20-25 mg 1 tab PO DAILY loratadine 1 tab PO DAILY metformin 1 tab PO BID metoprolol tartrate 1 tab PO BID omeprazole 1 cap PO DAILY HPI Comments Details: 72-year-old woman with a history of obesity longstanding diabetes mellitus and smoking this year for follow-up regarding CKD. Her baseline serum creatinine around 1.2-1.3 mg/dL. EGFR is was 46 mL/minute. Today she has no specific complaints. She continues to smoke cigarettes. She has been smoking since age 12. She has a history of atrial fibrillation status post cardioversion she follows with Dr. Hernandez at [facility] Medical History (Updated 06/05/23 @ 11:47 by Randy Mooney MD) COVID-19 vaccine administered History of cardioversion Vitamin B 12 deficiency Smoker Pernicious anemia History of diverticulosis Hypothyroid Arthritis Non-insulin dependent diabetes mellitus GERD (gastroesophageal reflux disease) History of neuropathy Migraine headache History of gastric cancer History of pneumonia New onset a-fib Elevated cholesterol Murmur HTN (hypertension) Surgical History History of nasal surgery History of esophagogastroduodenoscopy (EGD) History of bunionectomy of both great toes Hx of colonoscopy Social History Are you a primary vision care associate to a significant other at home: No Do you presently have visiting nurse or other home services: No Alcohol intake: never Patient Tobacco Use Status: Current everyday Tobacco user Tobacco use type: Cigarette Cigarettes Per Day: 15 Years Smoked: 40 Physical Exam Vital Signs: Last Vital Signs Pulse 98 12/04/23 10:49 BP 112/60 12/04/23 10:49 Pulse Ox 99 12/04/23 10:49 Oxygen Delivery Method Room Air 12/04/23 10:49 BMI result Body Mass Index 33.7 Const General: comfortable; No acute distress Orientation/consciousness: patient oriented x3 Eyes General: appearance normal, both eyes and all related structures Visual Sewell: normal visual sewell by confrontation Neck Neck: Yes supple and Yes no JVD Resp Effort & Inspection: normal respiratory effort and respiratory effort not decreased Auscultation: rhonchi Cardio Palpation: no palpable S3 and no palpable S4 Heart sounds: no rubs GI Inspection: Yes normal to inspection Palpation (GI): Soft to palpation Percussion: Yes normal to percussion Auscultation: normal bowel sounds General: Yes no CVA tenderness Back/Spine/Pelvis Back: no CVA tenderness Skin General skin exam: no petechiae and no purpura Neuro General: patient oriented x3 and no focal motor deficits Extrem General: No clubbing and No edema Results Reviewed Nephrology Results: Hgb 12.1 g/dl (12.0-16.0) 11/21/22 WBC 9.8 X10*3/uL (4.8-10.8) 11/21/22 Plt Count 264 X10*3/uL (160-400) 11/21/22 Sodium 141 mmol/L (135-145) 09/18/23 Potassium 3.7 mmol/L (3.3-5.1) 09/18/23 Chloride 100 mmol/L (96-108) 09/18/23 Carbon Dioxide 26 mmol/L (22-29) 09/18/23 BUN 22 mg/dL (9-16) H 09/18/23 Creatinine 0.99 mg/dL (0.5-1.4) 09/18/23 Calcium 8.8 mg/dL (8.4-10.2) 09/18/23 Urine Protein TRACE MG/DL (NEG-TRACE) 02/04/22 Urine Creatinine 62.97 mg/dL 05/28/23 Protein/Creatinin Ratio 0.75 (<0.2) H 05/28/23 Renal US 06/02/23 Assessment & Plan Assessment & Plan (1) CKD (chronic kidney disease): Code(s): N18.9 - Chronic kidney disease, unspecified Category: Medical (2) Proteinuria: Code(s): R80.9 - Proteinuria, unspecified Category: Medical (3) HTN (hypertension): Code(s): I10 - Essential (primary) hypertension Category: Medical Plan Elderly woman with CKD in setting of longstanding hypertension diabetes mellitus. She has nonnephrotic range proteinuria most likely due to underlying diabetic kidney disease. REcent Urine Pro Cr ratio was 0.75 serum creatinine around 0.9 and down from 1.2-1.3 mg/dL. Goal is to slow the progression of renal disease. Continue to maximize RICKY inhibitor as tolerated for renal protection. She will benefit from an SGLT 2 inhibitor. We discussed weight loss and smoking cessation. Hemoglobin stable around 12.1 grams/deciliter. Serum electrolytes are normal. Continued RICKY-inhibitor for renal protection. Coding Level of Care Code Est Pt Level 4 (74031) Diagnoses CKD (chronic kidney disease) N18.9 Proteinuria R80.9 HTN (hypertension) I10
== END 2023-12-04 11:12 | disposition home or self-care (01) ==
PROVIDERS: PCP Student in an Organized Health Care Education/Training Program; Visit Provider Internal Medicine Hypertension Specialist
DX: I12.9 Hypertensive chronic kidney disease with stage 1 through stage 4 chronic kidney disease, or unspecified chronic kidney disease (principal); E11.22 Type 2 diabetes mellitus with diabetic chronic kidney disease; N18.9 Chronic kidney disease, unspecified; R80.9 Proteinuria, unspecified
CPT/HCPCS: 99214

== ENCOUNTER → 2023-12-04 10:48 | Outpatient (BNVA) | payer MEDICARE, SELFPAY | PROVIDERS: PCP Student in an Organized Health Care Education/Training Program; Visit Provider Internal Medicine Hypertension Specialist | DX: I12.9 Hypertensive chronic kidney disease with stage 1 through stage 4 chronic kidney disease, or unspecified chronic kidney disease (principal); N18.9 Chronic kidney disease, unspecified; R80.9 Proteinuria, unspecified | CPT/HCPCS: 99212 ==

== ENCOUNTER 2024-03-25 09:02 | Outpatient (REF) | payer MEDICARE, SELFPAY ==
--- NOTE | ~2024-03-25 | MM_ITS ---
EXAMINATION: MM SCREENING DIGITAL BREAST TOMOSYNTHESIS, BILATERAL CLINICAL INFORMATION: Screening. Asymptomatic. COMPARISON: Mammography: Comparison is made with available priors TECHNIQUE: Digital breast mammography with tomosynthesis is performed in both the craniocaudal and mediolateral oblique views along with computer-aided detection (CAD). FINDINGS: There are scattered areas of fibroglandular density (ACR BI-RADS breast composition Category b). There are no significant masses, abnormal calcifications, or other abnormalities. MM/MM tomosynthesis screening BI IMPRESSION: No mammographic evidence of malignancy. ASSESSMENT: BI-RADS BI-RADS 1 - Negative RECOMMENDATION: Routine annual mammography screening. 1 year F/U This examination should not preclude the clinical evaluation of a suspicious palpable abnormality. This patient's information was entered into a reminder system with a target due date for their next mammogram. Electronically signed by: Maria Elena Sampson DO 04/05/2024 05:18 PM EDT
== END 2024-03-25 09:03 | disposition home or self-care (01) ==
LOC: HO.MAMMO 09:02
PROVIDERS: PCP Student in an Organized Health Care Education/Training Program; Visit Provider Student in an Organized Health Care Education/Training Program
DX: Z12.31 Encounter for screening mammogram for malignant neoplasm of breast (principal)
CPT/HCPCS: 77063; 77067

== ENCOUNTER → 2024-03-25 09:15 | Outpatient (BNV) | payer MEDICARE, SELFPAY | PROVIDERS: PCP Student in an Organized Health Care Education/Training Program; Visit Provider Internal Medicine | DX: Z12.31 Encounter for screening mammogram for malignant neoplasm of breast (principal) | CPT/HCPCS: 77063; 77067 ==

== ENCOUNTER 2024-05-04 09:35 | Outpatient (REF) | payer MEDICARE, SELFPAY ==
[2024-05-04 14:51] LABS: Estimated Average Glucose 117 mg/dL; Hemoglobin A1C 110.1431 umol/L; Hemoglobin A1c % 5.7 % (<6.0); Total Hemoglobin (HGBA1C) 2836.7133 umol/L
[2024-05-04 15:08] LABS: TSH reflex Free T4 0.71 uIU/mL (0.32-4.0)
[2024-05-04 15:23] LABS: Alanine Aminotransferase < 6 U/L (0-31); Albumin Level 3.4 g/dL (3.5-5.0); Alkaline Phosphatase 116 U/L (39-117); Anion Gap 20 (12-20); Aspartate Amino Transferase 19 U/L (5-31); Bilirubin Direct 0.2 mg/dL (0.0-0.5); Bilirubin Total 0.3 mg/dL (0.0-1.0); Blood Urea Nitrogen 21 mg/dL (9-16); Calcium 8.9 mg/dL (8.4-10.2); Carbon Dioxide 25 mmol/L (22-29); Chloride 100 mmol/L (96-108); Cholesterol 142 mg/dL (<200); Estimated Glomerular Filt Rate 53; Glucose Random 146 mg/dL (60-115); HDL Cholesterol 47 mg/dL (>40); LDL Cholesterol Calculated 74 mg/dL (<100); Potassium 3.7 mmol/L (3.3-5.1); Sodium 141 mmol/L (135-145); Total Protein 7.4 g/dL (6.5-8.0); Triglycerides 109 mg/dL (<150)
== END 2024-05-04 09:36 | disposition home or self-care (01) ==
LOC: HO.CHCLDS 09:35
PROVIDERS: Visit Provider Student in an Organized Health Care Education/Training Program
DX: I10 Essential (primary) hypertension (principal); E11.9 Type 2 diabetes mellitus without complications; E03.9 Hypothyroidism, unspecified
CPT/HCPCS: 36415; 80048; 80061; 80076; 83036; 84443